=== PATIENT | male | born 1980 | race Two or more races ===

== ENCOUNTER 2022-08-29 21:18 | Emergency (ER) | payer SELFPAY ==
[~2022-08-29] VITALS: Ht 165.1 cm; Wt 72.7 kg
[2022-08-29 21:23] VITALS: BP 134/91
[2022-08-29 21:49] LABS: Basophils # (auto) 0.1 10 ^3/uL (0-0.2); Eosinophils # (auto) 0 10 ^3/uL (0-0.8); Eosinophils % (auto) 0.2 % (0.0-7.0); Hematocrit 48.1 % (41.0-53.0); Hemoglobin 16.1 g/dL (13.5-17.5); Lymphocytes # (auto) 2.2 10 ^3/uL (0.4-5.4); Lymphocytes % (auto) 20.4 % (10.0-50.0); Mean Corpuscular Hemoglobin 30.3 pg (28.0-32.0); Mean Corpuscular Hgb Conc. 33.4 g/dL (32.0-36.0); Mean Corpuscular Volume 90.7 fL (80.0-100.0); Monocytes # (auto) 0.7 10 ^3/uL (0-1.3); Monocytes % (auto) 6.5 % (0.0-12.0); Neutrophils # (auto) 7.8 10 ^3/uL (1.6-8.6); Neutrophils % (auto) 71.9 % (37.0-80.0); Nucleated Red Blood Cells % 0.2 %; Red Blood Cells 5.31 10^6/uL (4.5-5.90); White Blood Cell 10.8 10^3/uL (4.4-10.8)
[2022-08-29 22:01] LABS: INR 1.24 (0.9-1.15); Partial Thromboplastin Time 26.5 SEC (24.5-34.5)
[2022-08-29 22:04] LABS: Albumin 3.9 g/dL (3.4-5.0); Magnesium 2.6 mg/dL (1.6-2.6); Potassium 4.4 mmol/L (3.5-5.1)
[2022-08-29 22:08] LABS: BUN/Creatinine Ratio 14.4 (10.0-20.0); Bilirubin, Total 0.8 mg/dL (0.2-1.0); Total Protein 6.8 g/dL (6.4-8.2)
== END 2022-08-29 22:34 | disposition left against medical advice (07) ==
LOC: ER 21:18
DX: R07.89 Other chest pain (principal); R11.0 Nausea; I10 Essential (primary) hypertension; Z53.21 Procedure and treatment not carried out due to patient leaving prior to being seen by health care provider
CPT/HCPCS: 36415; 80053; 83735; 83880; 84484; 85025; 85610; 85730